=== PATIENT | female | born 1990 | race Caucasian/White ===

== ENCOUNTER 2023-09-22 00:27 | Emergency (ER) | payer MEDICAID ==
[~2023-09-22] VITALS: Ht 165.1 cm; Wt 95.0 kg
[2023-09-22] MEDS ORDERED: KETOROLAC 30MG/ML VIAL IV STA (00:33)
[2023-09-22] MEDS ORDERED: ONDANSETRON HCL 4MG/2ML INJ IV STA (00:33)
[2023-09-22 00:44] VITALS: BP 104/56; PULSE 65; RESP 16; TEMP 98.3; O2SAT 99
[2023-09-22] MEDS ORDERED: SODIUM CHLORIDE 0.9% 1,000 ML IV ONE (00:45)
[2023-09-22 00:59] LABS: BASOPHILS % 0.8 % (0.0-2.0); EOSINOPHILS % 5.7 % (0.0-5.0); HEMATOCRIT. 38.1 % (36.0-48.0); HEMOGLOBIN. 12.8 g/dL (12.0-16.0); LYMPHOCYTES % 31.5 % (20.0-50.0); MEAN CORPUSCULAR HGB CONC 33.7 g/dL (31.0-37.0); MEAN CORPUSCULAR VOLUME 86.2 fL (81.0-99.0); MEAN PLATELET VOLUME 7.3 fl (7.4-10.4); MONOCYTES % 7.7 % (2.0-8.0); NEUTROPHILS % 54.3 % (40.0-76.0); PLATELET 320 x1000/uL (130-400); RED BLOOD CELL COUNT 4.42 mill/uL (4.2-5.4); RED CELL DISTRIBUTION WIDTH 13.1 % (11.6-14.6); WHITE BLOOD COUNT 6.6 x1000/uL (4.5-11.0)
[2023-09-22 01:03] LABS: CHLORIDE 108 mEq/L (98-107); POTASSIUM 3.3 mEq/L (3.5-5.1); SODIUM 139 mEq/L (136-145)
[2023-09-22 01:04] LABS: CARBON DIOXIDE 21 mEq/L (21-32)
[2023-09-22 01:09] LABS: CREATININE 0.6 mg/dL (0.6-1.0)
[2023-09-22 01:10] LABS: GLUCOSE 114 mg/dL (70-105); UREA NITROGEN BLOOD 12 mg/dL (9-23)
[2023-09-22 01:11] LABS: ALANINE AMINOTRANSFERASE 17 IU/L (10-49); ALBUMIN 4.3 g/dL (3.2-4.8); ASPARTATE AMINOTRANSFERASE 23 IU/L (<34); HCG SCREEN NEGATIVE
[2023-09-22 01:12] LABS: BILIRUBIN DIRECT 0.1 mg/dL (<=3.0); BILIRUBIN TOTAL 0.5 mg/dL (0.1-1.0)
[2023-09-22 01:14] LABS: ETHANOL BLOOD < 10 mg/dL (<10)
== END 2023-09-22 03:38 | disposition left against medical advice (07) ==
LOC: ER 00:27
DX: R10.11 Right upper quadrant pain (principal); Z00.00 Encounter for general adult medical examination without abnormal findings
CPT/HCPCS: 80076; 80048; 80320; 84703; 83690; 85025; 85610; 36415; 99283; J7030; G0480